=== PATIENT | male | born 1995 | race Caucasian/White ===

== ENCOUNTER 2017-04-30 14:02 | Emergency (ER) | payer OTHER ==
[~2017-04-30] VITALS: Ht 167.6 cm; Wt 73.5 kg
[2017-04-30 14:19] VITALS: BP 121/62
--- NOTE | 2017-04-30 14:29 | NUR ---
PT REPORTS LEFT EYE PAIN AND URTICARIA X 4DAYS WORSENING YESTERADY WHEN HE NOTYICED RT EYE STATRED TO GET RED AND EYE DISCHARGE. DENIES ANY FEVERS/CHILLS. DENIES ANY VISION CHANGES, IN NAD. RESP EVEN AND UNLABORED.
--- NOTE | 2017-04-30 15:12 | NUR ---
Dr. Ignacio evaluating patient at bedside.
[2017-04-30 16:00] VITALS: BP 125/65
--- NOTE | 2017-04-30 16:00 | NUR ---
Patient discharged with v/s stable. Written and verbal after care instructions given and explained. Patient alert, oriented and verbalized understanding of instructions. Ambulatory with steady gait. All questions addressed prior to discharge. ID band removed. Patient advised to follow up with PMD. Rx of NAPHAZOLINE HYDROCHLORIDE OPTH given. Patient educated on indication of medication including possible reaction and side effects. Opportunity to ask questions provided and answered.
== END 2017-04-30 16:00 | disposition home or self-care (01) ==
LOC: MED 14:02
DX: H10.13 Acute atopic conjunctivitis, bilateral (principal)
CPT/HCPCS: 99283